=== PATIENT | female | born 1985 | race Caucasian/White ===

== ENCOUNTER 2021-11-27 14:23 | Emergency (ER) | payer BC ==
[2021-11-27] MEDS ORDERED: Sodium Chloride 0.9% 1,000 ML IV STA ×2 (14:57→17:03)
[2021-11-27] MEDS ORDERED: Ondansetron 4 MG/2 ML SDV IVPUSH ONE (14:57)
== END 2021-11-27 21:50 | disposition home or self-care (01) ==
LOC: JD.ED 14:23
DX: F10.10 Alcohol abuse, uncomplicated (principal); Z20.822 Contact with and (suspected) exposure to COVID-19; Y90.8 Blood alcohol level of 240 mg/100 ml or more
CPT/HCPCS: 36415; 80053; 80143; 80179; 80307; 84443; 85007; 85027; 87635; 93005; 96360; 96361; 99284; J7030; 93010; 99283; U0002

== ENCOUNTER 2022-01-12 05:22 | Emergency (ER) | payer BC ==
[2022-01-12] MEDS ORDERED: Ondansetron 4 MG/2 ML SDV IVPUSH ONE (05:47)
[2022-01-12] MEDS ORDERED: Sodium Chloride 0.9% 10 ML Syringe FLUSH PRN (05:47)
[2022-01-12] MEDS ORDERED: Sodium Chloride 0.9% 1,000 ML IV SCH ×3 (06:00→10:30)
[2022-01-12] MEDS ORDERED: LORazepam 2 MG/ML SDV IVPUSH ONE (11:28)
== END 2022-01-12 14:03 | disposition home or self-care (01) ==
LOC: JD.ED 05:22
DX: F10.129 Alcohol abuse with intoxication, unspecified (principal); Z86.16 Personal history of COVID-19; Y90.2 Blood alcohol level of 40-59 mg/100 ml
CPT/HCPCS: 36415; 80053; 80143; 80179; 80306; 80307; 84443; 84703; 85025; 96361; 96374; 96375; 99284; J2060; J2405; J3490; J7030; 99283